=== PATIENT | female | born 1950 | race American Indian/Alaskan Native ===

== ENCOUNTER 2018-08-07 12:16 | Outpatient (CLI) | payer MEDICARE ==
--- NOTE | 2018-08-07 14:22 | Mammography Report ---
BILATERAL DIGITAL SCREENING MAMMOGRAM with CAD : 08/07/18 12:16:00 CLINICAL: Routine screening. COMPARISON:None. She had any prior mammogram at [facility] but it isn't available. FINDINGS: The breasts are heterogeneously dense, which may obscure small masses.Bilateral benign calcifications. No mass, architectural distortion or suspicious calcifications. IMPRESSION: No mammographic evidence of malignancy. BI-RADS CATEGORY: 2 -- Benign RECOMMENDATION: Routine mammographic screening in one year. COMMENT: Patient follow-up letters are generated by our [employer] application.
== END 2018-08-07 12:17 | disposition home or self-care (01) ==
LOC: MAMMO 12:16
DX: Z12.31 Encounter for screening mammogram for malignant neoplasm of breast (principal); E78.00 Pure hypercholesterolemia, unspecified; I10 Essential (primary) hypertension; E11.9 Type 2 diabetes mellitus without complications
CPT/HCPCS: 77067

== ENCOUNTER 2019-06-12 11:19 | Observation (INO) | payer MEDICARE ==
[2019-06-12] MEDS ORDERED: DEXTROSE 50% IN WATER (25GM) 50 ML SYRINGE IV ONE ×4 (12:03→17:53)
[2019-06-12 15:33] LABS: Basophils % (Auto) 0.1 % (0.0-1.8); Eosinophils % (Auto) 0.4 % (0.0-4.3); Hematocrit 35.7 % (30.3-42.9); Hemoglobin 11.5 gm/dl (10.1-14.3); Lymphocytes # (Auto) 0.7 K/mm3 (1.2-5.4); Lymphocytes % (Auto) 10.8 % (13.4-35.0); Mean Corpuscular HGB Conc 32 % (30-34); Mean Corpuscular Volume 91 fl (79-97); Monocytes # (Auto) 0.2 K/mm3 (0.0-0.8); Monocytes % (Auto) 3.6 % (0.0-7.3); Platelet Count 359 K/mm3 (140-440); Red Blood Count 3.93 M/mm3 (3.65-5.03); Red Cell Distribution Width 14.9 % (13.2-15.2)
[2019-06-12 15:52] LABS: Calcium 8.8 mg/dL (8.4-10.2)
[2019-06-12] MEDS ORDERED: ONDANSETRON 4 MG/2 ML INJ IV PRN (16:07)
[2019-06-12] MEDS ORDERED: ACETAMINOPHEN 325 MG TAB PO PRN (16:07)
--- NOTE | 2019-06-12 16:07 | History and Physical Report ---
History of Present Illness Chief complaint: I feel weak and lightheaded History of present illness: 68 YO Female with DM, CVA with LHP, HLD presents to ED for evaluation. Patient states that she experienced an acute onset of weakness and lightheadedness this morning. Patient reports that she recently underwent a change of her insulin dosing after a visit to her primary care physician's office. Patient states that she believes she may have "taken too much of her insulin". EMS was notified and upon arrival the patient was found to be in distress with a serum glucose of 40. Patient was given oral glucose load and subsequently transported to [facility] for further evaluation and care. Patient seen and evaluated in the emergency department. Lab and imaging studies reviewed. Patient treated with supportive care with repeat glucose remaining in the 40s. Patient initiated on a dextrose drip. Patient admitted to [facility] unit for further evaluation and care due to increased risk of decompensation. Patient denies fever, chills, chest pain, palpitations, productive cough, skin rash, recent ill contacts. No prior admission for review. All medication listed at time of admission has been reconciled. Advanced care planning conducted in the emergency department. Past History Past Medical History: diabetes, hyperlipidemia, stroke Past Surgical History: cataract removal, , thyroidectomy Medications and Allergies Allergies Allergy/AdvReac Type Severity Reaction Status Date / Time fish derived Allergy Rash Verified 01/02/13 13:18 peas Allergy Rash Uncoded 01/03/13 11:37 Home Medications Medication Instructions Recorded Confirmed Last Taken Type Aspirin [Baby Aspirin] 81 mg PO QDAY 10/04/13 06/12/19 10/04/13 History lisinopriL [Zestril] 5 mg PO QDAY 10/04/13 06/12/19 10/04/13 History Cholecalciferol Vit D3 [Vitamin D3 5,000 units PO 1XW 06/12/19 06/12/19 Unknown History 1,000 UNIT TAB] Cyproheptadine HCl 4 mg PO TID 06/12/19 06/12/19 Unknown History Levemir VIAL 20 unit SC DAILY 06/12/19 06/12/19 Unknown History Novolin R 15 unit SC TID 06/12/19 06/12/19 Unknown History metFORMIN 500 mg PO BID 06/12/19 06/12/19 Unknown History Review of Systems Constitutional: weakness, no fever, no chills, no sweats Ears, nose, mouth and throat: no ear pain, no ear discharge, no tinnitis, no nose pain Cardiovascular: no chest pain, no orthopnea, no palpitations, no rapid/irregular heart beat, no edema, no syncope Respiratory: no cough, no excessive sputum, no hemoptysis, no shortness of breath Gastrointestinal: no nausea, no vomiting, no change in bowel habits Genitourinary Female: no pelvic pain, no flank pain, no dysuria Rectal: no pain, no incontinence, no bleeding Musculoskeletal: no neck stiffness, no neck pain, no arm numbness/tingling, no shooting leg pain, no leg numbness/tingling Integumentary: no rash, no pruritis, no sores, no wounds, no jaundice Neurological: no head injury, no transient paralysis, no paralysis, no parathesias, no numbness, no tingling Psychiatric: no anxiety, no memory loss, no change in sleep habits, no sleep disturbances, no insomnia, no hypersomnia, no change in libido, no suicidal ideation Endocrine: low blood sugars, no cold intolerance, no heat intolerance, no polyphagia, no excessive thirst, no thyroid mass Hematologic/Lymphatic: no easy bruising, no easy bleeding, no lymphadenopathy, no lymphedema Allergic/Immunologic: no urticaria, no allergic rhinitis, no persistent infections, no anaphylaxis Exam - Constitutional Vitals: Temp Pulse Resp BP Pulse Ox 97.6 F 88 19 135/73 99 06/12/19 11:25 06/12/19 14:30 06/12/19 14:30 06/12/19 14:30 06/12/19 14:30 General appearance: Present: mild distress, well-nourished - EENT Eyes: Present: PERRL ENT: hearing intact, clear oral mucosa - Neck Neck: Present: supple, normal ROM - Respiratory Respiratory effort: normal Respiratory: bilateral: CTA - Cardiovascular Heart Sounds: Present: S1 & S2. Absent: rub, click - Extremities Extremities: pulses symmetrical, No edema Peripheral Pulses: within normal limits - Abdominal General gastrointestinal: Present: soft, non-tender, non-distended, normal bowel sounds Female genitourinary: Present: normal - Integumentary Integumentary: Present: clear, warm, dry - Musculoskeletal Musculoskeletal: gait normal, strength equal bilaterally - Psychiatric Psychiatric: appropriate mood/affect, intact judgment & insight - Neurologic Neurologic: CNII-XII intact, moves all extremities Results - Labs CBC & Chem 7: 06/12/19 14:38 06/12/19 14:38 Labs: Abnormal lab results 06/12/19 06/12/19 Range/Units 14:38 14:38 Lymph % (Auto) 10.8 L (13.4-35.0) % Lymph # 0.7 L (1.2-5.4) K/mm3 Seg Neutrophils % 85.1 H (40.0-70.0) % Carbon Dioxide 20 L (22-30) mmol/L BUN 53 H (7-17) mg/dL Creatinine 1.6 H (0.7-1.2) mg/dL Glucose 133 H (65-100) mg/dL Assessment and Plan - Patient Problems (1) Hypoglycemia Current Visit: Yes Status: Acute Plan to address problem: Dextrose drip, Accu-Chek, supportive care, hypoglycemia protocol. (2) Acute kidney injury Current Visit: Yes Status: Acute Plan to address problem: IV fluid resuscitation therapy, monitor urine output every shift, BMP, repeat BMP in a.m. (3) DVT prophylaxis Current Visit: Yes Status: Acute Plan to address problem: SCD to bilateral lower extremities while in bed, patient is ambulatory. (4) Advance care planning Current Visit: Yes Status: Acute Plan to address problem: Patient is full code, disease education conducted, patient acknowledges understanding and agreement with care plan, +30 minutes.
--- NOTE | 2019-06-12 16:45 | Emergency Department Report ---
ED General Adult HPI - General Chief complaint: Hypoglycemia Stated complaint: HYPOGLYCEMIA Time Seen by Provider: 06/12/19 11:56 Source: patient, EMS Mode of arrival: Stretcher Limitations: No Limitations - History of Present Illness Initial comments: Patient is a 68-year-old F [place] female with past medical history of diabetes who is presenting status post hypoglycemia. Patient states that her insulin doses and medications were recently changed by her primary care physician. She is now on regular insulin as well as Levemir. Patient states that this morning she believes she may have taken too much of 1 of her insulin. States she is confused about how to take her medications. After taking very 2 shots this morning patient states she became dizzy and called paramedics. Patient had a glucose in the 40s on their arrival. Patient was given juice and peanut butter and jelly sandwich prior to arrival which did help her symptoms. She denies any seizure activity nausea or vomiting. Severity scale (0 -10): 0 - Related Data Home Medications Medication Instructions Recorded Confirmed Last Taken Aspirin [Baby Aspirin] 81 mg PO QDAY 10/04/13 10/04/13 10/04/13 lisinopriL [Zestril] 5 mg PO QDAY 10/04/13 10/04/13 10/04/13 Previous Rx's Medication Instructions Recorded Last Taken Type Simvastatin (Nf) [Zocor TAB] 20 mg PO QHS #30 tablet 01/01/13 09/26/13 Rx Aspirin 325 mg PO QDAY #30 tablet 01/19/13 09/26/13 Rx Insulin NPH, Human [NovoLIN N] 8 unit SUB-Q QHS #1 bottle 10/04/13 Unknown Rx Insulin NPH, Human [NovoLIN N] 16 unit SUB-Q QDDIAB #1 bottle 10/04/13 Unknown Rx Allergies Allergy/AdvReac Type Severity Reaction Status Date / Time fish derived Allergy Rash Verified 01/02/13 13:18 peas Allergy Rash Uncoded 01/03/13 11:37 ED Review of Systems ROS: Stated complaint: HYPOGLYCEMIA Other details as noted in HPI Comment: All other systems reviewed and negative ED Past Medical Hx - Past Medical History Hx Hypertension: Yes Hx CVA: Yes (left side weakness) Hx Congestive Heart Failure: No Hx Diabetes: Yes Hx Asthma: No Hx COPD: No Hx HIV: No Additional medical history: high cholesterol - Surgical History Additional Surgical History: cataract, thyroid, x1 - Social History Smoking Status: Never Smoker - Medications Home Medications: Home Medications Medication Instructions Recorded Confirmed Last Taken Type Simvastatin (Nf) [Zocor TAB] 20 mg PO QHS #30 tablet 01/01/13 10/04/13 09/26/13 Rx Aspirin 325 mg PO QDAY #30 tablet 01/19/13 10/04/13 09/26/13 Rx Aspirin [Baby Aspirin] 81 mg PO QDAY 10/04/13 10/04/13 10/04/13 History Insulin NPH, Human [NovoLIN N] 8 unit SUB-Q QHS #1 bottle 10/04/13 Unknown Rx Insulin NPH, Human [NovoLIN N] 16 unit SUB-Q QDDIAB #1 bottle 10/04/13 Unknown Rx lisinopriL [Zestril] 5 mg PO QDAY 10/04/13 10/04/13 10/04/13 History ED Physical Exam - General Limitations: No Limitations General appearance: alert, in no apparent distress - Head Head exam: Present: atraumatic, normocephalic - Eye Eye exam: Present: normal appearance, PERRL, EOMI - ENT ENT exam: Present: mucous membranes moist - Neck Neck exam: Present: normal inspection - Respiratory Respiratory exam: Present: normal lung sounds bilaterally. Absent: respiratory distress, wheezes, rales, rhonchi - Cardiovascular Cardiovascular Exam: Present: regular rate, normal rhythm. Absent: systolic murmur, diastolic murmur, rubs, gallop - GI/Abdominal GI/Abdominal exam: Present: soft, normal bowel sounds. Absent: distended, tenderness, guarding - Extremities Exam Extremities exam: Present: normal inspection - Back Exam Back exam: Present: normal inspection - Neurological Exam Neurological exam: Present: alert, oriented X3 - Psychiatric Psychiatric exam: Present: normal affect, normal mood - Skin Skin exam: Present: warm, dry, intact, normal color. Absent: rash ED Course Vital Signs 06/12/19 06/12/19 06/12/19 11:25 11:36 11:49 Temperature 97.6 F Pulse Rate 91 H Respiratory 18 Rate Blood Pressure 152/70 152/70 Blood Pressure 152/70 [Left] O2 Sat by Pulse 100 100 100 Oximetry 06/12/19 06/12/19 06/12/19 12:00 12:15 12:16 Temperature Pulse Rate 84 93 H Respiratory 18 20 Rate Blood Pressure 126/75 112/64 Blood Pressure [Left] O2 Sat by Pulse 99 99 100 Oximetry 06/12/19 06/12/19 06/12/19 12:31 12:57 13:00 Temperature Pulse Rate 94 H 87 Respiratory 14 21 Rate Blood Pressure 160/75 160/75 162/83 Blood Pressure [Left] O2 Sat by Pulse 99 100 100 Oximetry 06/12/19 06/12/19 06/12/19 13:15 13:30 13:45 Temperature Pulse Rate 86 80 88 Respiratory 14 14 22 Rate Blood Pressure 154/75 129/70 129/70 Blood Pressure [Left] O2 Sat by Pulse 99 99 99 Oximetry 06/12/19 06/12/19 06/12/19 14:00 14:15 14:30 Temperature Pulse Rate 77 78 88 Respiratory 16 16 19 Rate Blood Pressure 118/60 118/60 135/73 Blood Pressure [Left] O2 Sat by Pulse 99 99 99 Oximetry 06/12/19 06/12/19 06/12/19 14:45 15:00 15:15 Temperature Pulse Rate 79 82 85 Respiratory 20 20 19 Rate Blood Pressure 135/73 142/62 142/62 Blood Pressure [Left] O2 Sat by Pulse 99 99 99 Oximetry 06/12/19 06/12/19 06/12/19 15:30 15:45 16:03 Temperature Pulse Rate 83 85 Respiratory 24 22 Rate Blood Pressure 129/55 129/55 129/55 Blood Pressure [Left] O2 Sat by Pulse 100 99 99 Oximetry ED Medical Decision Making - Lab Data Result diagrams: 06/12/19 14:38 06/12/19 14:38 Lab Results 06/12/19 06/12/19 Range/Units 14:38 14:38 WBC 6.7 (4.5-11.0) K/mm3 RBC 3.93 (3.65-5.03) M/mm3 Hgb 11.5 (10.1-14.3) gm/dl Hct 35.7 (30.3-42.9) % MCV 91 (79-97) fl MCH 29 (28-32) pg MCHC 32 (30-34) % RDW 14.9 (13.2-15.2) % Plt Count 359 (140-440) K/mm3 Lymph % (Auto) 10.8 L (13.4-35.0) % [place] % (Auto) 3.6 (0.0-7.3) % Eos % (Auto) 0.4 (0.0-4.3) % Baso % (Auto) 0.1 (0.0-1.8) % Lymph # 0.7 L (1.2-5.4) K/mm3 [place] # 0.2 (0.0-0.8) K/mm3 Eos # 0.0 (0.0-0.4) K/mm3 Baso # 0.0 (0.0-0.1) K/mm3 Seg Neutrophils % 85.1 H (40.0-70.0) % Seg Neutrophils # 5.7 (1.8-7.7) K/mm3 Sodium 137 (137-145) mmol/L Potassium 4.7 (3.6-5.0) mmol/L Chloride 106.2 (98-107) mmol/L Carbon Dioxide 20 L (22-30) mmol/L Anion Gap 16 mmol/L BUN 53 H (7-17) mg/dL Creatinine 1.6 H (0.7-1.2) mg/dL Estimated GFR 39 ml/min BUN/Creatinine Ratio 33 % Glucose 133 H (65-100) mg/dL Calcium 8.8 (8.4-10.2) mg/dL - Medical Decision Making Patient's glucose was in the 50s on her arrival and the patient was given an amp of D50. Patient was allowed to eat and after an hour her blood glucose was checked again and was still in the 50 range. Patient was given additional dose of D50. Patient will be admitted for obvious since 1 of the insulin that she took was long-acting and she has had 2 episodes of hypoglycemia here in the emergency department. Critical care attestation.: If time is entered above; I have spent that time in minutes in the direct care of this critically ill patient, excluding procedure time. ED Disposition Clinical Impression: Hypoglycemia Insulin overdose Qualifiers: Encounter type: initial encounter Injury intent: accidental or unintentional Qualified Code(s): T38.3X1A - Poisoning by insulin and oral hypoglycemic [antid iabetic] drugs, accidental (unintentional), initial encounter Disposition: DC-09 OP ADMIT IP TO THIS HOSP Is pt being admited?: Yes Does the pt Need Aspirin: No Condition: Stable Time of Disposition: 16:45
[2019-06-12] MEDS ORDERED: NACL IV ONE (18:09)
[2019-06-12] MEDS ORDERED: D5W IV ONE (18:09)
[2019-06-12] MEDS ORDERED: D5W/0.9% NACL 1,000 ML IV ONE (18:12)
[2019-06-12] MEDS: D5W/0.9% NACL 1,000 ML IV SCH (18:13)
[2019-06-12] MEDS ORDERED: CYPROHEPTADINE HCL 4 MG PO SCH (20:00)
[2019-06-12] MEDS ORDERED: CYPROHEPTADINE 4 MG TAB PO SCH (20:00)
[2019-06-12] MEDS ORDERED: PRAVASTATIN 40 MG TAB PO SCH (22:00)
[2019-06-12] MEDS ORDERED: NON-FORMULARY EACH (Simvastatin 20 MG) PO SCH (22:00)
[2019-06-13] MEDS ORDERED: DEXTROSE 50% IN WATER (25GM) 50 ML SYRINGE IV PRN (01:00)
[2019-06-13] MEDS: D5W/0.9% NACL 1,000 ML IV SCH (06:35)
[2019-06-13] MEDS ORDERED: CHOLECALCIFEROL (VIT D3) 5,000 UNIT TAB PO SCH (10:00)
[2019-06-13] MEDS ORDERED: ASPIRIN 81 MG TAB CHEW PO SCH (10:00)
[2019-06-13] MEDS ORDERED: LISINOPRIL 5 MG TAB PO SCH (10:00)
[2019-06-13 12:33] VITALS: BP 136/82
--- NOTE | 2019-06-13 13:24 | Discharge Summary ---
Providers - Providers Date of Admission: 06/12/19 16:08 Date of discharge: 06/13/19 Attending physician: ODETTE MEIER Primary care physician: WATCHGUARD Hospitalization Condition: Stable Hospital course: 68 YO Female with DM, CVA with LHP, HLD presents to ED for evaluation of an acute onset of weakness and lightheadedness. Patient reports that she recently underwent a change of her insulin dosing after a visit to her primary care physician's office. Patient states that she believes she may have "taken too much of her insulin". EMS was notified and upon arrival the patient was found to be in distress with a serum glucose of 40. Patient was given oral glucose load and subsequently transported to [facility] for further evaluation and care. Patient seen and evaluated in the emergency department. Lab and imaging studies reviewed. Patient treated with supportive care with repeat glucose remaining in the 40s. Patient initiated on a dextrose drip. Patient admitted to [facility] unit for further evaluation and care due to increased risk of decompensation. She also noted slight elevation of creatinine, her ACEI was on hold. Her blood glucose remains stable, blood pressure remained stable. She was instructed to continue metformin and sliding scale of insulin only if her blood glucose greater than 200. She was then discharged home in stable condition and instructed to follow-up with her primary care physician next week. Discharge diagnosis: Lightheadedness due to hypoglycemia and dehydration Hyperglycemia due to insulin -adjusted dose KRYSTEN, due to dehydration status post IV saline, resolved Hypertension, stable History of CVA with left-sided hemiparesis, stable Physical exam: GENERAL: well-developed elderly female lying on bed appeared to be in no discomfort. HEENT: Normocephalic. Atraumatic. No conjunctival congestion or icterus. Patient has moist mucous membranes. NECK: Supple. Trachea midline. CHEST/LUNGS: Clear to auscultated bilaterally, breathing nonlabored. No wheezes crackles or rhonchi. HEART/CARDIOVASCULAR: Regular in rate and rhythm. S1 and S2 positive. ABDOMEN: Abdomen is soft, nontender. Patient has normal bowel sounds. SKIN: There is no rash. Warm and dry. NEURO: Left-sided weakness. Follows command. MUSCULOSKELETAL: No joint effusion or tenderness. EXTRIMITY: No edema, no cyanosis or clubbing. PSYCH: Cooperative. Disposition: DC/- HOME UNDER HOME [facility] Time spent for discharge: 34 minutes Core Measure Documentation - Palliative Care Palliative Care/ Comfort Measures: Not Applicable - Core Measures Any of the following diagnoses?: history only Exam - Constitutional Vitals: Temp Pulse Resp BP Pulse Ox 97.9 F 77 18 136/82 97 06/13/19 11:59 06/13/19 11:59 06/13/19 11:59 06/13/19 11:59 06/13/19 11:59 Plan Activity: fall precautions Weight Bearing Status: Non-Weight Bearing Diet: diabetic Special Instructions: record blood sugar diary, home health RN Additional Instructions: Start metformin if BG postmeal >200. then can start insulin sliding scale only if postmeal BG remains elevated >200 after starting metformin. BG 200-249: apply 2 units insulin. BG 250 -299: apply 4 units insulin. BG >300 apply 6 units, >350 x2 call PCP Follow up with: PRIMARY CARE, [Primary Care Provider] - 7 Days Prescriptions: metFORMIN [Glucophage] 500 mg PO BID #60 tablet Amlodipine Besylate [Norvasc] 5 mg PO DAILY #30 tablet
== END 2019-06-13 16:58 | disposition home health service (06) ==
LOC: ED 11:19 → 4A 16:08
PROVIDERS: ADMIT Internal Medicine; ATTEND Internal Medicine
DX: E11.649 Type 2 diabetes mellitus with hypoglycemia without coma (principal); E11.65 Type 2 diabetes mellitus with hyperglycemia; N17.9 Acute kidney failure, unspecified; E86.0 Dehydration; I10 Essential (primary) hypertension; E78.00 Pure hypercholesterolemia, unspecified; T38.3X1A Poisoning by insulin and oral hypoglycemic [antidiabetic] drugs, accidental (unintentional), initial encounter; E78.5 Hyperlipidemia, unspecified; Z86.73 Personal history of transient ischemic attack (TIA), and cerebral infarction without residual deficits; Z98.49 Cataract extraction status, unspecified eye; Z90.89 Acquired absence of other organs; Z79.4 Long term (current) use of insulin; Z79.82 Long term (current) use of aspirin; Z79.899 Other long term (current) drug therapy; Z91.018 Allergy to other foods; X58.XXXA Exposure to other specified factors, initial encounter; Y92.89 Other specified places as the place of occurrence of the external cause
CPT/HCPCS: 36415; 80048; 82962; 83036; 85025; 96365; 96366; 96376; 99284; A9270; G0378; J7042; J3246

== ENCOUNTER 2020-01-08 11:01 | Emergency (ER) | payer MEDICARE ==
[2020-01-08 11:13] VITALS: BP 160/65
--- NOTE | 2020-01-08 12:46 | Emergency Department Report ---
ED General Adult HPI - General Chief complaint: High BP Stated complaint: BLOOD PRESSURE/SUGAR HIGH Time Seen by Provider: 01/08/20 12:06 Source: patient Mode of arrival: Ambulatory Limitations: No Limitations - History of Present Illness Initial comments: 69-year-old -[place] female brought in by her with concerns for elevated blood glucose of 300 this morning and high blood pressure of 199/90 at home. Patient denies any weakness no slurred speech no fever no chills no pain. Patient does have a history of a stroke with left-sided weakness. is concerned that when he gives her her diabetic medication that she plummets through the night. She is currently on Novolin 15 units 3 times a day and Levemir 20 units daily. She does have a primary care provider as well as a art preparator. Onset/Timin -: month(s) Severity scale (0 -10): 0 - Related Data Home Medications Medication Instructions Recorded Confirmed Last Taken Aspirin [Aspirin BABY CHEW TAB] 81 mg PO QDAY 10/04/13 06/12/19 10/04/13 Cholecalciferol Vit D3 [Vitamin D3 5,000 units PO 1XW 06/12/19 06/12/19 Unknown 1,000 UNIT TAB] Cyproheptadine HCl 4 mg PO TID 06/12/19 06/12/19 Unknown Previous Rx's Medication Instructions Recorded Last Taken Type Amlodipine Besylate [Norvasc] 5 mg PO DAILY #30 tablet 06/13/19 Unknown Rx metFORMIN [Glucophage] 500 mg PO BID #60 tablet 06/13/19 Unknown Rx Allergies Allergy/AdvReac Type Severity Reaction Status Date / Time fish derived Allergy Rash Verified 01/02/13 13:18 peas Allergy Rash Uncoded 01/03/13 11:37 ED Review of Systems ROS: Stated complaint: BLOOD PRESSURE/SUGAR HIGH Other details as noted in HPI Comment: All other systems reviewed and negative ED Past Medical Hx - Past Medical History Hx Hypertension: Yes Hx CVA: Yes (left side weakness) Hx Congestive Heart Failure: No Hx Diabetes: Yes Hx Asthma: No Hx COPD: No Hx HIV: No Additional medical history: high cholesterol - Surgical History Additional Surgical History: cataract, thyroid, x1 - Social History Smoking Status: Never Smoker - Medications Home Medications: Home Medications Medication Instructions Recorded Confirmed Last Taken Type Aspirin [Aspirin BABY CHEW TAB] 81 mg PO QDAY 10/04/13 06/12/19 10/04/13 History Cholecalciferol Vit D3 [Vitamin D3 5,000 units PO 1XW 06/12/19 06/12/19 Unknown History 1,000 UNIT TAB] Cyproheptadine HCl 4 mg PO TID 06/12/19 06/12/19 Unknown History Amlodipine Besylate [Norvasc] 5 mg PO DAILY #30 tablet 06/13/19 Unknown Rx metFORMIN [Glucophage] 500 mg PO BID #60 tablet 06/13/19 Unknown Rx ED Physical Exam - General Limitations: No Limitations General appearance: alert, in no apparent distress - Head Head exam: Present: atraumatic, normocephalic - Eye Eye exam: Present: normal appearance - ENT ENT exam: Present: mucous membranes moist - Neck Neck exam: Present: normal inspection - Respiratory Respiratory exam: Present: normal lung sounds bilaterally. Absent: respiratory distress - Cardiovascular Cardiovascular Exam: Present: regular rate, normal rhythm. Absent: systolic murmur, diastolic murmur, rubs, gallop - GI/Abdominal GI/Abdominal exam: Present: soft, normal bowel sounds - Extremities Exam Extremities exam: Present: normal inspection - Back Exam Back exam: Present: normal inspection - Neurological Exam Neurological exam: Present: alert, oriented X3 - Psychiatric Psychiatric exam: Present: normal affect, normal mood - Skin Skin exam: Present: warm, dry, intact, normal color. Absent: rash ED Course Vital Signs 01/08/20 11:08 Temperature 98.0 F Pulse Rate 83 Respiratory 24 Rate Blood Pressure 160/65 O2 Sat by Pulse 99 Oximetry ED Medical Decision Making - Medical Decision Making 69-year-old -[place] female brought in by her with concerns for elevated blood glucose of 300 this morning and high blood pressure of 199/90 at home. Patient denies any weakness no slurred speech no fever no chills no pain. Patient does have a history of a stroke with left-sided weakness. is concerned that when he gives her her diabetic medication that she plummets through the night. She is currently on Novolin 15 units 3 times a day and Levemir 20 units daily. She does have a primary care provider as well as a art preparator. Discussed with patient's level 1 inpatient that it is very important for him to follow-up with her primary care provider referral to endocrinology will be added to her discharge summary. I discussed with the to check her blood sugar before he gives her her insulin at night. And if it is less than 100 to only give her Levemir 10 units. Discussed with patient level 1 that he needs to follow-up with her primary care provider to get a sliding scale for her Novolin. Encourage to follow a diabetic diet avoid sugary drinks and starchy foods increase her water intake fresh vegetables lean meats. Critical care attestation.: If time is entered above; I have spent that time in minutes in the direct care of this critically ill patient, excluding procedure time. ED Disposition Clinical Impression: HTN (hypertension), benign Diabetes Qualifiers: Diabetes mellitus correction insulin use: with terminal block assembler use Diabetes mellitus complication detail: with chronic kidney disease Type 2 diabetes mellitus Qualifiers: Diabetes mellitus terminal block assembler insulin use: with correction use Diabetes mellitus complication detail: with chronic kidney disease Disposition: DC-01 TO HOME OR SELFCARE Is pt being admited?: No Does the pt Need Aspirin: No Condition: Stable Instructions: Diabetes Mellitus Type 2 in Adults (ED), Hypertension (ED), Type 2 Diabetes Mellitus, Self Care, Adult, [id number], Hypertension, Adult, Diabetes Mellitus and Nutrition, Adult Additional Instructions: It is very important that she follow-up with her primary care provider or a fur trapper that specializes in diabetes. Please encourage to follow a diabetic diet and lifestyle. Is very important for her to increase her water intake avoid sugary drinks ice tea. Is important she gets a foot exam and eye exam yearly. Keep her appointments with her art preparator. Referrals: DEVIN ACEVEDO NP-C [Primary Care Provider] - 3-5 Days COLLEEN RAMESH MD [Staff Physician] - 3-5 Days JOHNATHAN VALENCIA MD [Referring] - 3-5 Days Forms: Accompanied Note
== END 2020-01-08 13:02 | disposition home or self-care (01) ==
LOC: ED 11:01
DX: E11.65 Type 2 diabetes mellitus with hyperglycemia (principal); I10 Essential (primary) hypertension; E78.00 Pure hypercholesterolemia, unspecified; I25.2 Old myocardial infarction; Z79.899 Other long term (current) drug therapy; Z91.013 Allergy to seafood; Z91.018 Allergy to other foods; Z98.890 Other specified postprocedural states
CPT/HCPCS: 82962; 99282

== ENCOUNTER 2020-02-15 07:51 | Emergency (ER) | payer MEDICARE ==
[2020-02-15 09:30] LABS: Basophils % (Auto) 0.6 % (0.0-1.8); Eosinophils # (Auto) 0.2 K/mm3 (0.0-0.4); Eosinophils % (Auto) 3.2 % (0.0-4.3); Hematocrit 28.8 % (30.3-42.9); Hemoglobin 9.8 gm/dl (10.1-14.3); Lymphocytes # (Auto) 1.8 K/mm3 (1.2-5.4); Lymphocytes % (Auto) 23.9 % (13.4-35.0); Mean Corpuscular HGB Conc 34 % (30-34); Mean Corpuscular Volume 95 fl (79-97); Monocytes # (Auto) 0.4 K/mm3 (0.0-0.8); Monocytes % (Auto) 6.1 % (0.0-7.3); Platelet Count 335 K/mm3 (140-440); Red Blood Count 3.04 M/mm3 (3.65-5.03); Red Cell Distribution Width 14.7 % (13.2-15.2)
[2020-02-15 09:50] LABS: Calcium 8.7 mg/dL (8.4-10.2)
--- NOTE | 2020-02-15 12:14 | Emergency Department Report ---
ED General Adult HPI - General Chief complaint: Recheck/Abnormal Lab/Rx Stated complaint: HIGH POTASSIUM Source: patient Mode of arrival: Ambulatory Limitations: No Limitations - History of Present Illness Initial comments: Patient is a 69-year-old female with a history of hypertension on medication presents the ED today because she was called by her film historian to come in and have her potassium checked. Patient states that she saw her film historian Dr. Hubbard yesterday and got a call from his office this morning to have her come to the emergency room for evaluation. Patient states that complaints. Patient denies fever chest pain shortness of breath or any other symptoms. Patient states that she is simply here because she was told to come in by her film historian. Patient states that she does not have a diagnosis of kidney disease but is being monitored by a kidney doctor. - Related Data Home Medications Medication Instructions Recorded Confirmed Last Taken Aspirin [Aspirin BABY CHEW TAB] 81 mg PO QDAY 10/04/13 06/12/19 10/04/13 Cholecalciferol Vit D3 [Vitamin D3 5,000 units PO 1XW 06/12/19 06/12/19 Unknown 1,000 UNIT TAB] Cyproheptadine HCl 4 mg PO TID 06/12/19 06/12/19 Unknown Previous Rx's Medication Instructions Recorded Last Taken Type Amlodipine Besylate [Norvasc] 5 mg PO DAILY #30 tablet 06/13/19 Unknown Rx metFORMIN [Glucophage] 500 mg PO BID #60 tablet 06/13/19 Unknown Rx Allergies Allergy/AdvReac Type Severity Reaction Status Date / Time fish derived Allergy Rash Verified 01/02/13 13:18 peas Allergy Rash Uncoded 01/03/13 11:37 ED Review of Systems ROS: Stated complaint: HIGH POTASSIUM Other details as noted in HPI Comment: All other systems reviewed and negative ED Past Medical Hx - Past Medical History Hx Hypertension: Yes Hx CVA: Yes (left side weakness) Hx Congestive Heart Failure: No Hx Diabetes: Yes Hx Asthma: No Hx COPD: No Hx HIV: No Additional medical history: high cholesterol - Surgical History Additional Surgical History: cataract, thyroid, x1 - Social History Smoking Status: Never Smoker Substance Use Type: None - Medications Home Medications: Home Medications Medication Instructions Recorded Confirmed Last Taken Type Aspirin [Aspirin BABY CHEW TAB] 81 mg PO QDAY 10/04/13 06/12/19 10/04/13 History Cholecalciferol Vit D3 [Vitamin D3 5,000 units PO 1XW 06/12/19 06/12/19 Unknown History 1,000 UNIT TAB] Cyproheptadine HCl 4 mg PO TID 06/12/19 06/12/19 Unknown History Amlodipine Besylate [Norvasc] 5 mg PO DAILY #30 tablet 06/13/19 Unknown Rx metFORMIN [Glucophage] 500 mg PO BID #60 tablet 06/13/19 Unknown Rx ED Physical Exam - General Limitations: No Limitations General appearance: alert, in no apparent distress - Head Head exam: Present: atraumatic, normocephalic - Eye Eye exam: Present: normal appearance - ENT ENT exam: Present: mucous membranes moist - Neck Neck exam: Present: normal inspection - Respiratory Respiratory exam: Present: normal lung sounds bilaterally. Absent: respiratory distress - Cardiovascular Cardiovascular Exam: Present: regular rate, normal rhythm. Absent: systolic murmur, diastolic murmur, rubs, gallop - GI/Abdominal GI/Abdominal exam: Present: soft, normal bowel sounds - Extremities Exam Extremities exam: Present: normal inspection - Back Exam Back exam: Present: normal inspection - Neurological Exam Neurological exam: Present: alert, oriented X3 - Psychiatric Psychiatric exam: Present: normal affect, normal mood - Skin Skin exam: Present: warm, dry, intact, normal color. Absent: rash ED Medical Decision Making - Lab Data Result diagrams: 02/15/20 08:40 02/15/20 08:40 - Medical Decision Making This 69-year-old female who presents for evaluation of hyper kalemia. Discussed with patient lab results. Patient is also here with son who explained all the lab results with. I discussed patient follow-up with her kidney specialist after all. I discussed with patient abnormal findings. Patient is in no acute distress. Patient states she will follow-up with her doctor. Discussed with patient if she is having any worsening symptoms or any new symptoms return to ED immediately. Critical care attestation.: If time is entered above; I have spent that time in minutes in the direct care of this critically ill patient, excluding procedure time. ED Disposition Clinical Impression: Hyperkalemia, Mild renal insufficiency Disposition: DC-01 TO HOME OR SELFCARE Is pt being admited?: No Does the pt Need Aspirin: No Condition: Stable Instructions: Hyperkalemia, [id number], Acute Kidney Injury, Adult Referrals: PRIMARY CARE, [Primary Care Provider] - 3-5 Days DEEPTHI TOLBERT MD, PHD [Referring] - 3-5 Days [facility] [Outside] - 3-5 Days Forms: Accompanied Note Time of Disposition: 12:48
== END 2020-02-15 13:00 | disposition home or self-care (01) ==
LOC: ED 07:51
DX: E87.5 Hyperkalemia (principal); N28.9 Disorder of kidney and ureter, unspecified; E11.9 Type 2 diabetes mellitus without complications; E78.00 Pure hypercholesterolemia, unspecified; I10 Essential (primary) hypertension; Z79.899 Other long term (current) drug therapy; Z86.73 Personal history of transient ischemic attack (TIA), and cerebral infarction without residual deficits; Z91.013 Allergy to seafood; Z91.018 Allergy to other foods; Z98.890 Other specified postprocedural states
CPT/HCPCS: 36415; 80048; 85025; 93005; 99283